=== PATIENT | female | born 1995 | race Caucasian/White ===

== ENCOUNTER 2021-02-07 15:16 | Emergency (ER) | payer OTHER, SELFPAY ==
--- NOTE | ~2021-02-07 | CT_ITS ---
EXAMINATION: CT HEAD WITHOUT CONTRAST CLINICAL INFORMATION: Left-sided headache for 2 days to rule out bleed. COMPARISON: None available. TECHNIQUE: Contiguous axial imaging was performed from the skull base to vertex without intravenous administration of contrast. This CT examination was performed using dose optimization techniques as appropriate, variously including the following: *Automated exposure control *Adjustment of mA and/or kV according to patient size (this includes techniques or standardized protocols for targeted exams where dose is matched to indication/reason for exam; i.e. extremities or head) *Use of iterative reconstruction technique FINDINGS: There is no intracranial hemorrhage, hydrocephalus, extra-axial surface collection, midline shift, or other herniation pattern. Mcclelland to white matter differentiation is diffusely maintained without evidence of an evolved acute territorial infarct. The basilar cisterns are preserved. No significant soft tissue abnormality. No acute osseous abnormality. The paranasal sinuses and the mastoid air cells are well aerated. CT/CT head/brain wo con IMPRESSION: No acute intracranial abnormality.
[2021-02-07 15:29] VITALS: BP 119/82; PULSE 95; RESP 18; TEMP 37.1; O2SAT 98; BMI 39.3
[2021-02-07 16:00] VITALS: BP 138/84; PULSE 95; RESP 20; TEMP 37.3; O2SAT 98
[2021-02-07 16:10] LABS: UPreg QC Valid YES; Urine Pregnancy NEGATIVE (NEGATIVE)
[2021-02-07] MEDS: Aspirin 81 MG TAB.CHEW 162 MG PO (16:29)
[2021-02-07] MEDS: diphenhydrAMINE HCL 25 MG TABLET 50 MG PO (16:30)
[2021-02-07] MEDS: Metoclopramide HCl 10 MG TABLET PO (16:30)
[2021-02-07] MEDS: Acetaminophen 325 MG TABLET 975 MG PO (16:30)
--- NOTE | 2021-02-07 17:37 | ED.HA ---
HPI - Headache General Chief Complaint: Headache Stated Complaint: headaches Time Seen by Provider: 02/07/21 15:49 Source: patient Mode of arrival: ambulatory Limitations: no limitations History of Present Illness HPI Narrative: 18-year-old female who presents emergency department for evaluation of headaches. The patient states that she has been having intermittent headaches for 9 months. She states she gets these headaches 2 to 3 times a week. She states that the headache will last 1-2 days. She states that she developed a headache yesterday that has been persistent. She describes this headache as being on the left side of her head and behind her eye, the headache is a constant, squeezing sensation which is 3/10 at its worst. She states that she has had headaches in the past that have been 10/10. She states that she gets blurred vision with her headaches mainly in her left eye. She has associated nausea with no vomiting or photophobia. She states that today she developed numbness on the left side of her face which was a new symptom, this concerned her therefore she came to the emergency department for evaluation. At the time of my evaluation the numbness resolved. She has been taking extra-strength Tylenol with no relief of her headache. The patient states she does have a history of migraine headaches but these headaches over the past 9 months of been different than her usual migraine headache. She denied fever, chills, neck pain, chest pain, shortness of breath, abdominal pain, numbness or weakness, loss of bowel or bladder control. Related Data Previous Rx's Medication Instructions Recorded metoclopramide HCl 10 mg tablet 10 mg PO Q6H PRN #14 tab 02/07/21 (Reglan) Allergies Allergy/AdvReac Type Severity Reaction Status Date / Time DAIRY PRODUCTS Allergy Severe ANAPHYLAXIS Uncoded 02/07/21 15:28 From KEFLEX Allergy Unknown UNKNOWN Uncoded 02/07/21 15:28 From ROCEPHIN Allergy Unknown UNKNOWN Uncoded 02/07/21 15:28 Review of Systems Review of Systems: Yes all other systems are reviewed and are negative [facility] Past Medical History [facility] Narrative: Past medical history: Asthma, recurrent muscle spasms of arms, legs and back, migraine headaches. Past surgical history: None. Social history: The patient does smoke cigarettes, she states she drinks alcohol 2 times a month, she denies drug use. Medical History (Updated 02/07/21 @ 18:55 by Marc Clifford MD) Asthma Social History Social History Patient Tobacco Use Status: Never used Tobacco Use of substances other than those prescribed or required for medical reasons: No Advance Directives: No Advance Directives Information Provided: Yes Patient : No Physical Exam Vital Signs: Vital Signs: Last Vital Signs Temp 99.2 F 02/07/21 16:00 Pulse 95 02/07/21 16:00 Resp 20 02/07/21 16:00 BP 138/84 02/07/21 16:00 Pulse Ox 98 02/07/21 16:00 Body Mass Index 39.3 Const: General: cooperative and no acute distress Orientation/consciousness: oriented to person and oriented to place Limitations: no limitations HENMT: Head: Yes normal to inspection, Yes normocephalic and Yes atraumatic Ears: external ears normal General nose exam: Normal external nose present Face and sinus: Yes normal facial exam Mouth: Normal oral and palatal mucosa present Throat: Yes posterior oropharynx normal Eyes: General: appearance normal, both eyes and all related structures Pupils: Equal, round and reactive pupils present Neck: Neck: Yes normal visual inspection, Yes no lymphadenopathy, Yes trachea midline and Yes supple Chest: Chest palpation & inspection: normal inspection of the chest and normal palpation of entire chest wall Resp: Effort & Inspection: normal respiratory effort and able to speak in complete sentences Auscultation: clear to auscultation bilaterally Cardio: Rate: regular rate Rhythm: regular rhythm Heart sounds: S1 normal heart sound present, S2 normal heart sound present and no murmurs GI: Inspection: Yes normal to inspection Palpation (GI): Soft to palpation, nontender and no guarding Auscultation: normal bowel sounds : General: Yes no CVA tenderness Back/Spine/Pelvis: Back: no CVA tenderness Skin: General skin exam: no rashes or lesions noted Neuro: General: oriented to person and oriented to place Cranial nerves: Yes CN's II-XII intact bilaterally and Yes Equal, round and reactive pupils present Cognition (Neuro): normal cognition Motor exam (neuro): 5/5 motor strength present throughout Extrem: General: Yes normal to inspection Psych: Appearance: grossly normal Speech and movement: Normal speech and movement present Affect: normal affect Attitude: cooperative Thought process: Normal thought process present Thought content: Normal thought content present Course Course Course Narrative: 26-year-old female who has a history of migraine headaches he has had a change in the character and pattern of her headaches over the past 9 months who presents emergency department for evaluation of a left-sided headache x2 days. Vital signs were normal. Physical examination was unremarkable. The patient had a CT scan of the brain revealed no acute findings. Patient's headache is consistent with a nonspecific headache syndrome and I did discuss this with her. She was treated with Reglan 10 mg orally, Benadryl 50 mg orally, Tylenol 975 mg and aspirin 162 mg orally. Patient states she did get some relief of her headache with this medication. The patient will be discharged home. The patient was given verbal and printed instructions prior to discharge. The patient was advised to follow-up with her PCP in 2 days and to return to the emergency department if her symptoms get worse or if she develops any new symptoms that are concerning to her. MDM - Headache Lab Data Labs: Lab Results 02/07/21 Range/Units 15:59 Urine Test NEGATIVE (NEGATIVE) Discharge Plan Discharge Clinical Impression: Headache Patient Disposition: Home, Self-Care Instructions: Acute Headache (ED) Additional Instructions: The CT scan of your head was normal which is reassuring. Your symptoms are consistent with a nonspecific headache pattern, this could possibly your migraine syndrome which has changed its character and pattern. I want you to take the following 3 medications together every 6 hours as needed for headache, nausea or vomiting. Reglan (metoclopramide) in 10 mg, 1 pill Benadryl 25 mg, 2 pills Excedrin migraine, 2 pills. After you take these medications, lie down in a dark quiet room and try to fall asleep. These medications will make you sleepy, do not drive or work after taking these medications. Follow-up with your doctor in 2 days. Please return to the emergency department if your symptoms get worse or if you develop any symptoms that are concerning to you. Prescriptions: New metoclopramide HCl [Reglan] 10 mg tablet 10 mg PO Q6H PRN (Reason: nausea and vomiting) Qty: 14 RF: 0
== END 2021-02-07 19:08 | disposition home or self-care (01) ==
PROVIDERS: Emergency Provider Emergency Medicine Emergency Medical Services; PCP Internal Medicine
DX: R51.9 Headache, unspecified (principal); Z79.899 Other long term (current) drug therapy
CPT/HCPCS: 70450; 81025; 99284; Q0163

== ENCOUNTER 2023-12-13 21:38 | Emergency (ER) | payer OTHER, SELFPAY ==
--- NOTE | ~2023-12-13 | XR_ITS ---
EXAMINATION: XR FOOT, RIGHT CLINICAL INFORMATION: Right foot injury COMPARISON: None available. TECHNIQUE: AP, lateral, and oblique views of the right foot. FINDINGS: The bones and soft tissues are unremarkable. A tiny plantar calcaneal spur is present. No fracture. Alignment is anatomic. Joint spaces are maintained. XR/XR foot RT min 3V IMPRESSION: 1. No acute fractures. 2. Tiny plantar calcaneal spur.
[2023-12-13 21:42] VITALS: BP 138/77; PULSE 97; RESP 18; TEMP 36.2; O2SAT 97; BMI 46.6
--- NOTE | 2023-12-13 23:52 | ED_ITS ---
HPI - General Adult General Chief complaint: Extremity Injury, Lower Stated complaint: R foot inj Time Seen by Provider: 12/13/23 22:22 Source: patient Mode of arrival: ambulatory Limitations: no limitations History of Present Illness ED Provider: Venkatesh Roland pA-C HPI narrative: 28-year-old female with past medical history of asthma presents to ED for right foot pain. patient states hyper dorsiflex her foot while doing yard work and than started have heel pain. Patient denies any blunt trauma to body. Related Data Previous Rx's ?Medication ?Instructions ?Recorded metoclopramide HCl 10 mg tablet 10 mg PO Q6H PRN nausea and 02/07/21 (Reglan) vomiting #14 tabs naproxen 500 mg tablet 500 mg PO BID PRN pain 7 days #14 12/14/23 tabs Allergies Allergy/AdvReac Type Severity Reaction Status Date / Time From KEFLEX Allergy Unknown UNKNOWN Uncoded 12/13/23 21:45 From ROCEPHIN Allergy Unknown UNKNOWN Uncoded 12/13/23 21:45 Review of Systems 2 Review of Systems: foot/heel pain Yes all other systems are reviewed and are negative [facility] Past Medical History Medical History (Updated 12/14/23 @ 00:21 by ELISA Blancas) Asthma Social History Social History Patient Tobacco Use Status: Never used Tobacco Advance Directives: No Advance Directives Information Provided: No Do you have a plan to hurt others: No Plan Physical Exam ED Vital Signs: Vital Signs - 24 hr 12/13/23 21:42 12/14/23 00:29 Temperature 97.1 F 97.1 F Pulse Rate 97 97 Respiratory Rate 18 18 Blood Pressure 138/77 138/77 Pulse Oximetry 97 97 Oxygen Delivery Method Room Air Room Air BMI result Body Mass Index 46.6 Const General: cooperative, healthy appearing, comfortable, no acute distress, well developed, alert and awake Orientation/consciousness: patient oriented x3 HENMT Head: Yes normal to inspection, Yes No palpable skull fracture present, Yes normocephalic, Yes atraumatic and No abrasion Eyes General: appearance normal, both eyes and all related structures Neck Neck: Yes normal visual inspection, Yes full ROM, Yes no lymphadenopathy, Yes no meningeal signs, Yes trachea midline, Yes supple, No anterior neck swelling and No tender Chest Chest palpation & inspection: normal inspection of the chest and normal palpation of entire chest wall Resp Effort & Inspection: normal respiratory effort and able to speak in complete sentences Auscultation: clear to auscultation bilaterally Cardio Jugular venous distension: no JVD Heart sounds: S1 normal heart sound present and S2 normal heart sound present GI Inspection: Yes normal to inspection Palpation (GI): Soft to palpation, not firm, nontender, no guarding and not rigid General: No CVA tenderness and Yes no CVA tenderness Back/Spine/Pelvis Back: no CVA tenderness, No CVA tenderness and No back tenderness Skin General skin exam: no rashes or lesions noted, elasticity normal and turgor normal Neuro General: patient oriented x3, gait normal, tone normal, moves all extremities, Normal light touch and pain sensation, no meningeal signs, no focal motor deficits, CN's II-XI intact bilaterally and normal sensation to monofilament Extrem General: Yes normal to inspection and Yes full ROM Ankle/foot/toe images: 2 1. ,Tendernes on palpation. Negative ecchymosis, crepitus, erythema, or deformity. Motor/neuro/vascular exam intact Psych Appearance: grossly normal, well kempt and not disheveled Medications Administered Discontinued Medications Generic Name Dose Route Start Last Admin Trade Name Freq PRN Reason Stop Dose Admin Ibuprofen 800 mg 12/14/23 00:22 12/14/23 00:27 Ibuprofen 800 Mg Tablet PO 12/14/23 00:23 800 mg ONCE ONE Administration Medical Decision Making Medical Decision Making [facility] Narrative: 28-year-old female presents to ED for right calcaneal foot pain. X-ray negative fracture. X-ray shows calcaneal spur. Patient is placed in Natalio wrap and crutches. Patient informed to follow up with primary care provider. Patient will be discharged. Patient explained worrisome. NOt Suspecting DVT, compartment syndrome, cellulitis, arterial occlusion, or dislocation. Suspect sprain calcaneal spur Differential Diagnosis Differential Diagnoses: The differential diagnosis associated with the presentation includes (Foot fracture. Foot sprain. Calcaneal spur) Admission/Observation Consideration of admission/observation: Escalation of care including admission/observation considered Independent Interpretation I performed an independent interpretation of an: Plain X-Ray Radiology Impression Discussion of test interpretation with radiology: I have reviewed the radiologist's reading. Independent Historian Clinical information obtained from an independent historian. History obtained from or confirmed by: Other (Patient) External Record Review External record reviewed: Other (Prior visit) Prescription Management I considered prescription management with: Pain Medication Discharge Plan Discharge Clinical Impression: Foot sprain, Heel spur Patient Disposition: Home, Self-Care Instructions: Foot Sprain (ED), Heel Spur (ED) Additional Instructions: Recommend follow-up with primary care provider for re-evaluation and possible MRI if no improvement. Return to the ED for, swelling, redness, calf pain, bluish black discoloration, stiffness, fever, chills, red streaks, chest pain, shortness of breath, or any other concerning symptoms. XR/XR foot RT min 3V IMPRESSION: 1. No acute fractures. 2. Tiny plantar calcaneal spur. Prescriptions: New naproxen 500 mg tablet 500 mg PO BID PRN (Reason: pain) 7 Days Qty: 14 0RF No Action metoclopramide HCl [Reglan] 10 mg tablet 10 mg PO Q6H PRN (Reason: nausea and vomiting) Qty: 14 0RF Stand Alone Forms: Work/School Release Interventions: ED Discharge Assessment Last Done: 12/14/23 00:29 Discharge Date/Time: 12/14/23 00:30 Print Language: Malay
[2023-12-14] MEDS: Ibuprofen 800 MG TABLET PO (00:27)
[2023-12-14 00:29] VITALS: BP 138/77; PULSE 97; RESP 18; TEMP 36.2; O2SAT 97
== END 2023-12-14 00:30 | disposition home or self-care (01) ==
PROVIDERS: Emergency Provider Emergency Medicine; PCP Internal Medicine
DX: S93.601A Unspecified sprain of right foot, initial encounter (principal); M77.31 Calcaneal spur, right foot; M79.671 Pain in right foot; Y93.01 Activity, walking, marching and hiking; Y93.89 Activity, other specified; Y92.89 Other specified places as the place of occurrence of the external cause; Y99.8 Other external cause status
CPT/HCPCS: 73630; 99283

== ENCOUNTER 2024-02-16 13:07 | Emergency (ER) | payer OTHER, SELFPAY ==
--- NOTE | ~2024-02-16 | XR_ITS ---
EXAMINATION: XR CHEST CLINICAL INFORMATION: Worsening chest pain for one month COMPARISON: 05/05/2017 TECHNIQUE: 2 views of the chest were obtained. FINDINGS: No significant abnormality is noted involving the heart, lungs, mediastinum, bony thorax or soft tissues. XR/XR chest 2V IMPRESSION: Unremarkable examination with no interval change. Electronically signed by: Willow Lopez MD 02/16/2024 04:03 PM EDT
--- NOTE | 2024-02-16 13:10 | ECG_ITS ---
Test Reason : CHEST PAIN Blood Pressure : / mmHG Vent. Rate : 099 BPM Atrial Rate : 099 BPM P-R Int : 152 ms QRS Dur : 080 ms QT Int : 350 ms P-R-T Axes : 035 070 010 degrees QTc Int : 449 ms Normal sinus rhythm Normal ECG When compared with ECG of 17-MAY-2011 22:56, QRS axis Shifted left Nonspecific T wave abnormality now evident in Anterior leads Referred By: Sandie Mendoza Electronically Signed By:ROBERT GRODILLO
[2024-02-16 14:03] VITALS: BP 149/74; PULSE 85; RESP 20; TEMP 37.2; O2SAT 98; BMI 45.7
[2024-02-16 15:24] LABS: MANUAL DIFF FLAG NO
[2024-02-16 15:25] LABS: Basophils Absolute Auto 0.1 X10*3/uL (0.0-0.2); Eosinophils Absolute Auto 0.6 X10*3/uL (0.0-0.4); Eosinophils Percent Auto 7.3 % (0-4); Hematocrit 38.8 % (37.0-47.0); Imm Gran Abs Auto 0.02 X10*3/uL (0.00-0.03); Imm Gran Pct Auto 0.2 % (0.0-0.4); Lymphocytes Absolute Auto 3.5 X10*3/uL (1.2-4.9); Lymphocytes Percent Auto 40.4 % (20-40); Mean Corpuscular HGB Conc 33.5 g/dl (31.0-35.0); Mean Corpuscular Hemoglobin 29.1 pg (27.0-33.0); Mean Platelet Volume 9.1 fL (9.4-12.3); Monocytes Absolute Auto 0.5 X10*3/uL (0.1-1.2); Neutrophils Absolute Auto 3.9 x10*3/uL (2.0-8.3); Neutrophils Percent Auto 45.1 % (45-73); Platelet Count 375 X10*3/uL (160-400); Red Blood Count 4.46 X10*6/uL (4.20-5.50); Red Cell Distribution Width 13.5 % (11.0-16.0); White Blood Count 8.7 X10*3/uL (4.8-10.8)
[2024-02-16 15:50] LABS: Anion Gap 11 (12-20); Blood Urea Nitrogen 10 mg/dL (9-16); Carbon Dioxide 22 mmol/L (22-29); Chloride 111 mmol/L (96-108); Creatinine Clr Calc Pharmacy 122.8; Estimated Glomerular Filt Rate > 60; Glucose Random 91 mg/dL (60-115); HCG Quantitative < 2 mIU/mL; Potassium 4.1 mmol/L (3.3-5.1); Sodium 140 mmol/L (135-145); Troponin-I High Sensitivity < 2.7 ng/L (<3.5-17.0)
--- NOTE | 2024-02-16 16:27 | ED.CHESTPAIN ---
HPI - Chest Pain General Chief Complaint: Chest Pain Stated Complaint: Chest pain Time Seen by Provider: 02/16/24 19:24 Source: patient Mode of arrival: ambulatory Limitations: no limitations History of Present Illness HPI narrative: This is a 29-year-old woman with a past medical history of asthma who presents for evaluation of intermittent chest pain for the last 1 month. She states the episodes occur randomly while at rest and when driving. Patient states that the episodes last for several minutes. She states feeling short of breath during these episodes. She states that the episodes resolve with no specific intervention. She states no exacerbation of her symptoms with exertion or food intake. She states no associated back pain or abdominal pain. She states no associated nausea or vomiting. She states no associated palpitations, lightheadedness or syncope. She states discussing with her primary care today who recommended she come to the emergency room for evaluation. She states no recent febrile illness. She states no cough, congestion, sputum production, hemoptysis, diarrhea or leg swelling/pain. She states no recent trauma or surgery. She states no family history of venous thromboembolism. She reports no personal history of malignancy or prior DVT/PE. Related Data Previous Rx's ?Medication ?Instructions ?Recorded metoclopramide HCl 10 mg tablet 10 mg PO Q6H PRN nausea and 02/07/21 (Reglan) vomiting #14 tabs naproxen 500 mg tablet 500 mg PO BID PRN pain 7 days #14 12/14/23 tabs Allergies Allergy/AdvReac Type Severity Reaction Status Date / Time From KEFLEX Allergy Unknown UNKNOWN Uncoded 02/16/24 14:04 From ROCEPHIN Allergy Unknown UNKNOWN Uncoded 02/16/24 14:04 Review of Systems Review of Systems: ROS as per [facility] Past Medical History Medical History (Updated 02/17/24 @ 00:01 by Background Daemon) Asthma Social History Social History Patient Tobacco Use Status: Never used Tobacco Advance Directives: No Advance Directives Information Provided: Yes Do you have a plan to hurt others: No Plan Physical Exam Vital Signs: Vital Signs: Last Vital Signs Temp 98.0 F 02/16/24 19:47 Pulse 81 02/16/24 19:47 Resp 16 02/16/24 19:47 BP 118/86 02/16/24 19:47 Pulse Ox 99 02/16/24 19:47 O2 Del Method Room Air 02/16/24 19:47 BMI result Body Mass Index 45.7 Gen: NAD, AOx3 HEENT: NCAT, EOMI, normal conjunctiva CV: RRR, no murmurs appreciated Pulm: CTAB, no increased work of breathing, no wheezes, rhonchi or rales GI: Soft, NTND, no rebound, guarding or rigidity MSK: No asymmetrical calf edema/TTP/erythema Neuro: Grossly non focal Course Course Course Narrative: Rapid medical exam performed by Sandie Mendoza PA-C. The patient is a 29-year-old female with history of obesity who presents with intermittent chest pain over the past month. Pain reproducible with palpation of central chest. Denies trauma or injury. On exam, she is well in appearance, lungs clear to auscultation, normal peripheral perfusion, pain elicited with palpation of central chest wall, we will be screening basic labs, troponin, EKG and chest x-ray. Patient is stable and she will return to the waiting room awaiting her complete assessment. Medical Decision Making Medical Decision Making [facility] Narrative: Differential diagnosis includes, but is not limited to ACS, myocarditis, anemia, pneumothorax, asthma, anxiety. Patient is afebrile and hemodynamically stable on room air. I have very low clinical suspicion for pulmonary embolism and PERC score is 0. Exam is benign and reassuring as above. I reviewed and interpreted labs, which are noncontributory. I reviewed and interpreted EKG, which is unremarkable for any acute findings. I reviewed diagnostic imaging as below. On re-examination, patient is well-appearing and in no acute distress. ?Patient states she has no symptoms at time of discharge. ?There is no indication for further emergent evaluation in this otherwise well-appearing patient as above. ?Patient is provided written and verbal instructions, educational materials, recommendations for outpatient follow-up, strict return precautions and teach back is performed. ?Patient states understanding and agreement with plan of care. ?Patient is discharged home in stable and improved condition. Admission/Observation Consideration of admission/observation: Escalation of care including admission/observation considered Lab Data [facility] Lab Attestation statement: I reviewed the patient's lab results. I reviewed and interpreted the patient's labs including CBC, BMP and troponin. Troponin is negative x2 effectively ruling out ACS and myocarditis. Beta hCG is negative. CBC and BMP are unremarkable. 02/16/24 15:19 02/16/24 15:19 Labs: Lab Results 02/16/24 02/16/24 Range/Units 15:19 17:40 WBC 8.7 (4.8-10.8) X10*3/uL RBC 4.46 (4.20-5.50) X10*6/uL Hgb 13.0 (12.0-16.0) g/dl Hct 38.8 (37.0-47.0) % MCV 87.0 (80.0-98.0) fL MCH 29.1 (27.0-33.0) pg MCHC 33.5 (31.0-35.0) g/dl RDW 13.5 (11.0-16.0) % Plt Count 375 (160-400) X10*3/uL MPV 9.1 L (9.4-12.3) fL Immature Gran % (Auto) 0.2 (0.0-0.4) % Neut % (Auto) 45.1 (45-73) % Lymph % (Auto) 40.4 H (20-40) % Villalba % (Auto) 6.0 (2-11) % Eos % (Auto) 7.3 H (0-4) % Baso % (Auto) 1.0 (0-2) % Lymph # (Auto) 3.5 (1.2-4.9) X10*3/uL Villalba # (Auto) 0.5 (0.1-1.2) X10*3/uL Eos # (Auto) 0.6 H (0.0-0.4) X10*3/uL Baso # (Auto) 0.1 (0.0-0.2) X10*3/uL Abs Immat Gran (auto) 0.02 (0.00-0.03) X10*3/uL Absolute Neuts (auto) 3.9 (2.0-8.3) x10*3/uL Absolute Nucleated RBC 0.000 (0.0-0.012) X10*3/uL Nucleated RBC % (auto) 0.0 (0.0-0.2) /100WBC Sodium 140 (135-145) mmol/L Potassium 4.1 (3.3-5.1) mmol/L Chloride 111 H (96-108) mmol/L Carbon Dioxide 22 (22-29) mmol/L Anion Gap 11 L (12-20) BUN 10 (9-16) mg/dL Creatinine 0.79 (0.5-1.4) mg/dL Estim Creat Clear Calc 122.8 Estimated GFR > 60 Random Glucose 91 (60-115) mg/dL Calcium 10.0 (8.4-10.2) mg/dL Troponin I High Sens < 2.7 < 2.7 (<3.5-17.0) ng/L Beta HCG, Quant < 2 mIU/mL Independent Interpretation I performed an independent interpretation of an: EKG and Plain X-Ray Interpretation: I reviewed and interpreted patient's EKG, which demonstrates sinus rhythm at 99 beats per minute, LA 152, QRS 80, QTC 449, no STEMI I reviewed the patient's chest x-ray, which demonstrates no focal consolidation or pneumothorax Radiology Impression Discussion of test interpretation with radiology: I have reviewed the radiologist's reading. Radiologist Impression: XR/XR chest 2V IMPRESSION: Unremarkable examination with no interval change. Electronically signed by: Willow Lopez MD 02/16/2024 04:03 PM EDT RP Dictated By: Willow Lopez MD Signed By: <Electronically signed by Willow Lopez MD in OV> 02/16/24 1603 Discharge Plan Discharge Clinical Impression: Chest pain Patient Disposition: Home, Self-Care Instructions: Chest Pain (ED) Additional Instructions: You were seen and evaluated in the emergency room. Your vital signs were normal. Your blood work was normal. Your chest x-ray and EKG were normal. Please follow-up with your primary care doctor in the next 5-7 days. ? Please return to the emergency room if you develop any worsening symptoms including, but not limited to fever, chest pain or difficulty breathing. ? Prescriptions: No Action metoclopramide HCl [Reglan] 10 mg tablet 10 mg PO Q6H PRN (Reason: nausea and vomiting) Qty: 14 0RF naproxen 500 mg tablet 500 mg PO BID PRN (Reason: pain) 7 Days Qty: 14 0RF Interventions: ED Discharge Assessment Last Done: 02/16/24 19:47 Discharge Date/Time: 02/16/24 19:48 Print Language: Icelandic
[2024-02-16 18:15] LABS: Troponin-I High Sensitivity < 2.7 ng/L (<3.5-17.0)
--- NOTE | 2024-02-16 19:25 | ED.CHESTPAIN ---
HPI - Chest Pain General Chief Complaint: Chest Pain Stated Complaint: Chest pain Time Seen by Provider: 02/16/24 19:24 History of Present Illness HPI narrative: Note created in error. Please remove in medical record. Please see my signed and completed note for details. Related Data Previous Rx's ?Medication ?Instructions ?Recorded metoclopramide HCl 10 mg tablet 10 mg PO Q6H PRN nausea and 02/07/21 (Reglan) vomiting #14 tabs naproxen 500 mg tablet 500 mg PO BID PRN pain 7 days #14 12/14/23 tabs Allergies Allergy/AdvReac Type Severity Reaction Status Date / Time From KEFLEX Allergy Unknown UNKNOWN Uncoded 02/16/24 14:04 From ROCEPHIN Allergy Unknown UNKNOWN Uncoded 02/16/24 14:04 [facility] Past Medical History Medical History (Updated 02/16/24 @ 19:37 by Vince Mcfadden MD) Asthma Social History Social History Patient Tobacco Use Status: Never used Tobacco Advance Directives: No Advance Directives Information Provided: Yes Do you have a plan to hurt others: No Plan Physical Exam Vital Signs: Vital Signs: Last Vital Signs Temp 98.0 F 02/16/24 19:47 Pulse 81 02/16/24 19:47 Resp 16 02/16/24 19:47 BP 118/86 02/16/24 19:47 Pulse Ox 99 02/16/24 19:47 O2 Del Method Room Air 02/16/24 19:47 BMI result Body Mass Index 45.7 Medical Decision Making Lab Data 02/16/24 15:19 02/16/24 15:19 Labs: Lab Results 02/16/24 02/16/24 Range/Units 15:19 17:40 WBC 8.7 (4.8-10.8) X10*3/uL RBC 4.46 (4.20-5.50) X10*6/uL Hgb 13.0 (12.0-16.0) g/dl Hct 38.8 (37.0-47.0) % MCV 87.0 (80.0-98.0) fL MCH 29.1 (27.0-33.0) pg MCHC 33.5 (31.0-35.0) g/dl RDW 13.5 (11.0-16.0) % Plt Count 375 (160-400) X10*3/uL MPV 9.1 L (9.4-12.3) fL Immature Gran % (Auto) 0.2 (0.0-0.4) % Neut % (Auto) 45.1 (45-73) % Lymph % (Auto) 40.4 H (20-40) % [place] % (Auto) 6.0 (2-11) % Eos % (Auto) 7.3 H (0-4) % Baso % (Auto) 1.0 (0-2) % Lymph # (Auto) 3.5 (1.2-4.9) X10*3/uL [place] # (Auto) 0.5 (0.1-1.2) X10*3/uL Eos # (Auto) 0.6 H (0.0-0.4) X10*3/uL Baso # (Auto) 0.1 (0.0-0.2) X10*3/uL Abs Immat Gran (auto) 0.02 (0.00-0.03) X10*3/uL Absolute Neuts (auto) 3.9 (2.0-8.3) x10*3/uL Absolute Nucleated RBC 0.000 (0.0-0.012) X10*3/uL Nucleated RBC % (auto) 0.0 (0.0-0.2) /100WBC Sodium 140 (135-145) mmol/L Potassium 4.1 (3.3-5.1) mmol/L Chloride 111 H (96-108) mmol/L Carbon Dioxide 22 (22-29) mmol/L Anion Gap 11 L (12-20) BUN 10 (9-16) mg/dL Creatinine 0.79 (0.5-1.4) mg/dL Estim Creat Clear Calc 122.8 Estimated GFR > 60 Random Glucose 91 (60-115) mg/dL Calcium 10.0 (8.4-10.2) mg/dL Troponin I High Sens < 2.7 < 2.7 (<3.5-17.0) ng/L Beta HCG, Quant < 2 mIU/mL Discharge Plan Discharge Clinical Impression: Chest pain Patient Disposition: Home, Self-Care Instructions: Chest Pain (ED) Additional Instructions: You were seen and evaluated in the emergency room. Your vital signs were normal. Your blood work was normal. Your chest x-ray and EKG were normal. Please follow-up with your primary care doctor in the next 5-7 days. ? Please return to the emergency room if you develop any worsening symptoms including, but not limited to fever, chest pain or difficulty breathing. ? Prescriptions: No Action metoclopramide HCl [Reglan] 10 mg tablet 10 mg PO Q6H PRN (Reason: nausea and vomiting) Qty: 14 0RF naproxen 500 mg tablet 500 mg PO BID PRN (Reason: pain) 7 Days Qty: 14 0RF Interventions: ED Discharge Assessment Last Done: 02/16/24 19:47 Discharge Date/Time: 02/16/24 19:48 Print Language: [place]an
[2024-02-16 19:47] VITALS: BP 118/86; PULSE 81; RESP 16; TEMP 36.7; O2SAT 99
== END 2024-02-16 19:48 | disposition home or self-care (01) ==
PROVIDERS: Physician Assistant Medical; Emergency Provider Emergency Medicine; PCP Internal Medicine
DX: R07.89 Other chest pain (principal); Z79.899 Other long term (current) drug therapy
CPT/HCPCS: 36415; 71046; 80048; 84484; 84702; 85025; 93005; 99283

== ENCOUNTER 2024-04-21 06:32 | Emergency (ER) | payer OTHER, SELFPAY ==
--- NOTE | 2024-04-21 | ECG_ITS ---
Test Reason : cp Blood Pressure : / mmHG Vent. Rate : 072 BPM Atrial Rate : 072 BPM P-R Int : 150 ms QRS Dur : 080 ms QT Int : 374 ms P-R-T Axes : 031 097 026 degrees QTc Int : 409 ms Normal sinus rhythm Rightward axis Low voltage QRS Borderline ECG When compared with ECG of 16-FEB-2024 13:07, No significant change was found Referred By: Generic ED Physician Electronically Signed By:BRENT FUNEZ
[2024-04-21 06:45] VITALS: BP 119/80; PULSE 90; RESP 14; TEMP 36.8; O2SAT 94; BMI 44.6
--- NOTE | 2024-04-21 06:56 | ED.GENADULT ---
HPI - General Adult General Chief complaint: General Medical Stated complaint: face pain Time Seen by Provider: 04/21/24 06:53 History of Present Illness ED Provider: Dr. Marc Clifford HPI narrative: 29-year-old female with a history of asthma, IBS and migraine syndrome who presents emergency department for evaluation of right-sided face, chest, right arm pain with right arm weakness. Patient states that the pain started yesterday in the morning and then resolved. She states that the pain then came back at around 21:00 hours yesterday the pain became severe. She describes the pain is a constant, sharp, stabbing pain which is 10/10. She points to her right side of her face and right lower jaw when asked to localize the pain. She states she also has a headache on the right side of her head. She had a associated nausea with no vomiting. She was complaining of right-sided chest pain and she points to the right costochondral joint area when asked to localize the pain. She states that the pain radiates down her right arm in her right arm feels weak compared to her left. Patient states that she gets similar pain 2 times a month for the last year but this pain is more severe than her other episodes. She attributes the pain to a tooth that was repaired a year ago and she believes that dentist may have drill to D been injured a nerve. She denied fever but did have chills. She denied rhinorrhea, sore throat, cough, facial swelling. Related Data Previous Rx's ?Medication ?Instructions ?Recorded metoclopramide HCl 10 mg tablet 10 mg PO Q6H PRN nausea and 02/07/21 (Reglan) vomiting #14 tabs naproxen 500 mg tablet 500 mg PO BID PRN pain 7 days #14 12/14/23 tabs metoclopramide HCl 10 mg tablet 10 mg PO Q6H PRN nausea and 04/21/24 (Reglan) vomiting #14 tabs Allergies Allergy/AdvReac Type Severity Reaction Status Date / Time From KEFLEX Allergy Unknown Anaphylaxis Uncoded 04/21/24 06:47 From ROCEPHIN Allergy Unknown Anaphylaxis Uncoded 04/21/24 06:47 Review of Systems Review of Systems: Yes all other systems are reviewed and are negative PMFSH Past Medical History Medical History (Updated 04/21/24 @ 09:43 by Marc Clifford MD) Asthma Social History Social History Patient Tobacco Use Status: Never used Tobacco Advance Directives: No Advance Directives Information Provided: Yes Physical Exam ED Vital Signs: Vital Signs - 24 hr 04/21/24 06:45 04/21/24 09:33 Temperature 98.2 F 98.8 F Pulse Rate 90 84 Respiratory Rate 14 18 Blood Pressure 119/80 101/56 L Pulse Oximetry 94 95 Oxygen Delivery Method Room Air Room Air BMI result Body Mass Index 44.6 Vital signs were normal Exam: General: Awake, alert in no distress Head: Normocephalic, atraumatic, patient does have tenderness palpation of her right side of her face but not in a specific distribution as well as tenderness palpation of her right lower jaw but there is no swelling in this area. EENT: PERRL, Lids normal, sclera normal, conjunctiva normal, nose normal , ears normal, throat without erythema or exudates, patient has no obvious dental caries, she does have some mild tenderness palpation of tooth 31, there is no gingival swelling or gingival tenderness Neck: Supple, no adenopathy Lung: breath sounds symmetric, no wheezing, rales or rhonchi Chest: symmetric movement, Tenderness palpation of the right costochondral joint area Heart: regular rate and rhythm, normal S1, S2 no murmurs or rubs Abdomen: soft, non-tender, nondistended, normal bowel sounds Back: no vertebral tenderness, no CVAT Extremities: no deformities, moves all extremities symmetrically Neuro: Awake, alert, oriented, normal speech, cranial nerves intact, moves all extremities symmetrically Psych: Pleasant, cooperative Medications Administered Discontinued Medications Generic Name Dose Route Start Last Admin Trade Name Carol Ann PRN Reason Stop Dose Admin Diphenhydramine HCl 50 mg 04/21/24 07:26 04/21/24 07:42 Diphenhydramine Hcl 50 Mg/Ml Vial IVPUSH 04/21/24 07:27 50 mg ONCE STA Administration Ketorolac Tromethamine 15 mg 04/21/24 07:26 04/21/24 07:42 Ketorolac Tromethamine 15 Mg/Ml Vial IVPUSH 04/21/24 07:27 15 mg ONCE STA Administration Metoclopramide HCl 10 mg 04/21/24 07:26 04/21/24 07:42 Metoclopramide Hcl 10 Mg/2 Ml Vial IVPUSH 04/21/24 07:27 10 mg ONCE STA Administration Medical Decision Making Medical Decision Making [facility] Narrative: 29-year-old female with a history of asthma, IBS and migraine syndrome who presents emergency department for evaluation of right-sided face, chest, right arm pain with right arm weakness With symptoms starting yesterday and persisting today. Patient was had similar pain 2 times a month for proximally 1 year. She states that today's pain however he was more severe than previously. Patient's pain was 10/10. She had associated nausea and chills but no vomiting. Vital signs were normal. Physical examination did reveal tenderness with palpation of the right side of her face and right lower jaw. Dental exam did reveal some while tenderness palpation of tooth #31 but no significant dental caries your other findings in her mouth to explain. Patient's chest did reveal right costochondral tenderness otherwise was unremarkable. Neurologic exam was nonfocal. Differential diagnosis: Includes but is not limited to Migraine headache, dental caries, dental infection, trigeminal neuralgia, myocardial infarction, myocardial ischemia, costochondritis, electrolyte abnormalities, anemia Following evaluation was ordered: CBC, CMP, troponin, PT /INR, IV insert, cardiac monitoring, O2 saturation monitoring Patient was initially treated with the following: Reglan 10 mg IV, Benadryl 50 mg IV, Toradol 15 mg IV Course: 09:38 My interpretation patient's laboratory evaluation is as follows: CBC was normal. Chloride elevated 111, bicarb low 19, bilirubin elevated 1.2. Troponin below detectable limits. LFTs were normal. Twelve EKG was unremarkable. Patient's pain decreased to 3/10 after the above treatment and she feels significantly better and would like to go home. my impression is that the patient's symptoms are consistent with a migraine syndrome possibly triggered by dental pain. Patient was advised to take the following medication regimen every 6 hours as needed for headache/facial pain: Reglan 10 mg, Benadryl 50 mg, Excedrin migraine 2 tablets orally. She was given printed and verbal instructions discharged home. Admission/Observation Consideration of admission/observation: Escalation of care including admission/observation considered ( yes) Lab Data [facility] Lab Attestation statement: I reviewed the patient's lab results. 04/21/24 07:17 04/21/24 07:17 Labs: Lab Results 04/21/24 Range/Units 07:17 WBC 7.3 (4.8-10.8) X10*3/uL RBC 4.74 (4.20-5.50) X10*6/uL Hgb 13.8 (12.0-16.0) g/dl Hct 40.3 (37.0-47.0) % MCV 85.0 (80.0-98.0) fL MCH 29.1 (27.0-33.0) pg MCHC 34.2 (31.0-35.0) g/dl RDW 13.2 (11.0-16.0) % Plt Count 386 (160-400) X10*3/uL MPV 9.2 L (9.4-12.3) fL Absolute Nucleated RBC 0.000 (0.0-0.012) X10*3/uL Nucleated RBC % (auto) 0.0 (0.0-0.2) /100WBC PT 13.0 H (10.9-12.4) SEC INR 1.1 (0.9-1.1) Sodium 140 (135-145) mmol/L Potassium 4.1 (3.3-5.1) mmol/L Chloride 111 H (96-108) mmol/L Carbon Dioxide 19 L (22-29) mmol/L Anion Gap 14 (12-20) BUN 9 (9-16) mg/dL Creatinine 1.01 (0.5-1.4) mg/dL Estim Creat Clear Calc 94.6 Estimated GFR > 60 Random Glucose 101 (60-115) mg/dL Calcium 9.3 D (8.4-10.2) mg/dL Total Bilirubin 1.2 H (0.0-1.0) mg/dL AST 20 (5-31) U/L ALT 23 (0-31) U/L Alkaline Phosphatase 55 (39-117) U/L Troponin I High Sens < 2.7 (<3.5-17.0) ng/L Total Protein 6.6 (6.5-8.0) g/dL Albumin 4.3 (3.5-5.0) g/dL Independent Interpretation I performed an independent interpretation of an: EKG Interpretation: my independent interpretation the patient's 12 EKG done at 07:06 hours is as follows: Normal sinus rhythm rate of 72, normal PA interval, QRS duration QTC interval, no ST segment elevation, no ST segment depression, inverted Q-wave in V1 and V2, no PACs, no PVCs Prescription Management I considered prescription management with: Pain Medication ( migraine regimen: Reglan 10 mg) Discharge Plan Discharge Clinical Impression: Migraine syndrome, Pain, dental, Facial pain Patient Disposition: Home, Self-Care Additional Instructions: Your blood work was normal. Your EKG was unremarkable. Your symptoms are consistent with a migraine syndrome, this may be triggered by dental pain. I want you to follow-up with your dentist so they can evaluate your tooth to make sure that you do not have an infection of the root or other abnormalities causing your pain which is triggering migraines. I want you to take the following 3 medications together every 6 hours as needed for headache, nausea or vomiting. Reglan (metoclopramide) in 10 mg, 1 pill Benadry (diphenhydramine) l 25 mg, 2 pills Excedrin migraine (acetaminophen, aspirin, caffeine), 2 pills. After you take these medications, lie down in a dark quiet room and try to fall asleep. ?These medications will make you sleepy, do not drive or work after taking these medications. Follow-up with your doctor in 2 days. Please return to the emergency department if your symptoms get worse or if you develop any symptoms that are concerning to you. I sent your prescription to the [facility] on kept that in [place] Prescriptions: New metoclopramide HCl [Reglan] 10 mg tablet 10 mg PO Q6H PRN (Reason: nausea and vomiting) Qty: 14 0RF No Action metoclopramide HCl [Reglan] 10 mg tablet 10 mg PO Q6H PRN (Reason: nausea and vomiting) Qty: 14 0RF naproxen 500 mg tablet 500 mg PO BID PRN (Reason: pain) 7 Days Qty: 14 0RF Print Language: Lithuanian
[2024-04-21 07:24] LABS: Hematocrit 40.3 % (37.0-47.0); Hemoglobin 13.8 g/dl (12.0-16.0); Mean Corpuscular HGB Conc 34.2 g/dl (31.0-35.0); Mean Corpuscular Hemoglobin 29.1 pg (27.0-33.0); Mean Platelet Volume 9.2 fL (9.4-12.3); Platelet Count 386 X10*3/uL (160-400); Red Blood Count 4.74 X10*6/uL (4.20-5.50); Red Cell Distribution Width 13.2 % (11.0-16.0); White Blood Count 7.3 X10*3/uL (4.8-10.8)
[2024-04-21 07:29] LABS: INTERNATIONAL NORM RATIO 1.1 (0.9-1.1)
[2024-04-21] MEDS: diphenhydrAMINE HCL 50 MG/ML VIAL IVPUSH (07:42)
[2024-04-21] MEDS: Metoclopramide HCl 10 MG/2 ML VIAL IVPUSH (07:42)
[2024-04-21] MEDS: Ketorolac Tromethamine 15 MG/ML VIAL IVPUSH (07:42)
[2024-04-21 08:17] LABS: Alanine Aminotransferase 23 U/L (0-31); Albumin Level 4.3 g/dL (3.5-5.0); Alkaline Phosphatase 55 U/L (39-117); Anion Gap 14 (12-20); Aspartate Amino Transferase 20 U/L (5-31); Bilirubin Total 1.2 mg/dL (0.0-1.0); Blood Urea Nitrogen 9 mg/dL (9-16); Calcium 9.3 mg/dL (8.4-10.2); Carbon Dioxide 19 mmol/L (22-29); Chloride 111 mmol/L (96-108); Creatinine Clr Calc Pharmacy 94.6; Estimated Glomerular Filt Rate > 60; Glucose Random 101 mg/dL (60-115); Potassium 4.1 mmol/L (3.3-5.1); Sodium 140 mmol/L (135-145); Total Protein 6.6 g/dL (6.5-8.0); Troponin-I High Sensitivity < 2.7 ng/L (<3.5-17.0)
[2024-04-21 09:33] VITALS: BP 101/56; PULSE 84; RESP 18; TEMP 37.1; O2SAT 95
[2024-04-21 09:52] VITALS: BP 101/56; PULSE 84; RESP 18; TEMP 37.1; O2SAT 95
== END 2024-04-21 09:57 | disposition home or self-care (01) ==
PROVIDERS: Emergency Provider Emergency Medicine Emergency Medical Services; PCP Internal Medicine
DX: G43.909 Migraine, unspecified, not intractable, without status migrainosus (principal); K08.89 Other specified disorders of teeth and supporting structures; G50.1 Atypical facial pain; Z79.899 Other long term (current) drug therapy
CPT/HCPCS: 36415; 80053; 84484; 85027; 85610; 93005; 96374; 96375; 99284; J1200; J1885; J2765

== ENCOUNTER → 2024-04-21 07:06 | Outpatient (BNV) | payer OTHER, SELFPAY | PROVIDERS: Emergency Provider Emergency Medicine Emergency Medical Services; PCP Internal Medicine; Visit Provider Internal Medicine | DX: R07.9 Chest pain, unspecified (principal) | CPT/HCPCS: 93010 ==